=== PATIENT | female | born 1935 ===

== ENCOUNTER → 2017-02-22 | Outpatient (CLI) | payer OTHER, SELFPAY ==
[~2017-02-22] MED LIST: AZIT250 PO; Aspirin EC81 MG PO; BUME2 PO; CODACE30 PO; Celexa10 MG PO; Diovan320 MG PO; FURO40 PO; GABA100 PO; GABA300 PO; GLIM4 PO; HYDMOR2 PO; HYDR10 PO; LISI5 PO; LOVA40 PO; MELA3 PO; METO100ER PO; METO25ER PO; MEVACOR; Micro-K10 MEQ PO; OXYC5 PO; Prednisone20 MG PO; SITA100T2 PO; Tessalon200 MG PO; [UNRECOGNIZED DRUG - REMARK]; [UNRECOGNIZED DRUG - REMARK]; [UNRECOGNIZED DRUG - REMARK]
[2017-02-22 16:09] LABS: CHOL/HDL RATIO 2.8; Cholesterol 173 mg/dL (50-200); HDL Cholesterol 62 mg/dL (>39); LDL/HDL RATIO 1.4; Low Density Lipoprotein Chol 88 mg/dL (0-110); Triglycerides 114 mg/dL (30-160); Very Low Density Lipoprot Chol 22 mg/dL (6-32)
== END | disposition home or self-care (01) ==
LOC: LAB 14:57
PROVIDERS: Hospitalist
DX: E78.5 Hyperlipidemia, unspecified (principal)
CPT/HCPCS: 80061

== ENCOUNTER → 2017-05-21 | Outpatient (CLI) | payer OTHER, SELFPAY ==
[~2017-05-21] MED LIST changes: -AZIT250 PO; -Aspirin EC81 MG PO; -BUME2 PO; -GABA300 PO; -LISI5 PO; -MELA3 PO; -METO25ER PO; -Micro-K10 MEQ PO; -Tessalon200 MG PO
[2017-05-21 17:46] LABS: Bun/Creatinine Ratio 27.7 (12.0-20.0); Calcium, Blood 9.2 mg/dL (8.5-10.1); Creatinine, Blood 1.19 mg/dL (0.40-1.00); Potassium, Blood 3.8 mmol/L (3.5-5.5)
== END ==
LOC: LAB SHORT 15:46 → LAB 15:46
PROVIDERS: Hospitalist
DX: N18.3 Chronic kidney disease, stage 3 (moderate) (principal)
CPT/HCPCS: 80048

== ENCOUNTER 2017-10-10 14:40 | Inpatient (IN) | payer OTHER ==
[~2017-10-10] VITALS: Ht 157.5 cm; Wt 83.9 kg
[2017-10-10 15:17] LABS: BASOPHILS ABSOLUTE AUTO 0.05 K/mm3 (0.00-0.23); BASOPHILS PERCENT AUTO 1 % (0-2); EOSINOPHILS ABSOLUTE AUTO 0.07 K/mm3 (0.00-0.68); EOSINOPHILS PERCENT AUTO 1 % (0-6); Hematocrit 52.2 % (33.0-51.0); Hemoglobin 16.4 g/dL (11.5-16.0); IMMATURE GRAN ABSOLUTE AUTO 0.02 K/mm3 (0.00-0.10); IMMATURE GRAN PERCENT AUTO 0 % (0-1); LYMPHOCYTES ABSOLUTE AUTO 1.02 K/mm3 (0.84-5.20); LYMPHOCYTES PERCENT AUTO 11 % (21-46); MONOCYTES ABSOLUTE AUTO 0.63 K/mm3 (0.16-1.47); MONOCYTES PERCENT AUTO 7 % (4-13); Mean Corpuscular HGB 31.5 pg (26.0-34.0); Mean Corpuscular HGB Conc 31.4 g/dL (31.5-36.5); Mean Corpuscular Volume 100 fL (80-100); Mean Platelet Volume 9.3 fL (9.1-12.4); NEUTROPHILS ABSOLUTE AUTO 7.42 K/mm3 (1.96-9.15); NEUTROPHILS PERCENT AUTO 81 % (41-73); NRBC ABSOLUTE 0.03 K/mm3 (0.00-0.02); NRBC Auto 0.3 /100 WBC (0.0-0.2); Platelet Count 211 K/mm3 (150-400); RDW Coefficient Variation 14.5 % (11.7-14.2); RDW Standard Deviation 52.3 fL (35.1-46.3); White Blood Cell Count 9.21 K/mm3 (4.00-11.30)
[2017-10-10] MEDS ORDERED: GABA300 PO (15:41)
[2017-10-10] MEDS ORDERED: HYDR10 PO (15:41)
[2017-10-10] MEDS ORDERED: BUME2 PO (15:41)
[2017-10-10] MEDS ORDERED: Aspirin EC81 MG PO (15:42)
[2017-10-10] MEDS ORDERED: MELA3 PO (15:42)
[2017-10-10 16:00] LABS: Albumin, Blood 3.3 g/dL (3.4-5.0); Albumin/Globulin Ratio 0.9 (0.8-1.8); Bun/Creatinine Ratio 18.1 (12.0-20.0); Calcium, Blood 8.6 mg/dL (8.5-10.1); Creatinine, Blood 1.49 mg/dL (0.40-1.00); Globulin, Blood 3.8 g/dL (2.2-4.0); Potassium, Blood 4.1 mmol/L (3.5-5.5); Total Protein, Blood 7.1 g/dL (6.4-8.2); Troponin I 0.11 ng/mL (0.000-0.040)
[2017-10-10 16:00] LABS: Base Excess Venous 14.1 mmol/L; Bicarbonate Venous 34.1 mmol/L (24.0-30.0); PO2 Venous 46.7 mmHg (38-42); pH Blood Venous 7.39 (7.34-7.37)
[2017-10-11 05:30] LABS: Albumin, Blood 2.9 g/dL (3.4-5.0); Anion Gap 5 mmol/L (6-16); Blood Urea Nitrogen 27 mg/dL (8-24); Bun/Creatinine Ratio 20.3 (12.0-20.0); CO2, Blood 34 mmol/L (21-32); Chloride, Blood 102 mmol/L (98-108); Creatinine, Blood 1.33 mg/dL (0.40-1.00); Glomerular Filtration Rate 40 (60-); Glucose, Blood 186 mg/dL (70-99); Phosphorus, Blood 3.9 mg/dL (2.5-4.9); Potassium, Blood 4.3 mmol/L (3.5-5.5); Sodium, Blood 141 mmol/L (136-145); Troponin I 0.117 ng/mL (0.000-0.040)
[2017-10-12 05:10] LABS: Bun/Creatinine Ratio 22.8 (12.0-20.0); Calcium, Blood 8.5 mg/dL (8.5-10.1); Creatinine, Blood 1.45 mg/dL (0.40-1.00); Potassium, Blood 3.8 mmol/L (3.5-5.5)
[2017-10-12] MEDS ORDERED: AZIT250 PO (13:14)
[2017-10-12] MEDS ORDERED: FURO40 PO (13:19)
[2017-10-12] MEDS ORDERED: Tessalon200 MG PO (13:19)
[2017-10-12] MEDS ORDERED: LISI5 PO (13:20)
[2017-10-12] MEDS ORDERED: METO25ER PO (13:21)
[2017-10-12] MEDS ORDERED: Micro-K10 MEQ PO (13:23)
== END 2017-10-12 16:03 | disposition home or self-care (01) | DRG 280 ==
LOC: ER 14:40 → PCU 16:33
PROVIDERS: Emergency Medicine; Family Medicine; Hospitalist
DX: I13.0 Hypertensive heart and chronic kidney disease with heart failure and stage 1 through stage 4 chronic kidney disease, or unspecified chronic kidney disease (principal); I50.33 Acute on chronic diastolic (congestive) heart failure; I21.4 Non-ST elevation (NSTEMI) myocardial infarction; J96.01 Acute respiratory failure with hypoxia; J18.9 Pneumonia, unspecified organism; Z86.73 Personal history of transient ischemic attack (TIA), and cerebral infarction without residual deficits; E66.9 Obesity, unspecified; Z68.31 Body mass index [BMI] 31.0-31.9, adult; N18.3 Chronic kidney disease, stage 3 (moderate); E11.22 Type 2 diabetes mellitus with diabetic chronic kidney disease; E78.5 Hyperlipidemia, unspecified; G89.4 Chronic pain syndrome; Z79.4 Long term (current) use of insulin; R29.810 Facial weakness; M48.061 Spinal stenosis, lumbar region without neurogenic claudication; E11.51 Type 2 diabetes mellitus with diabetic peripheral angiopathy without gangrene
CPT/HCPCS: 36415; 51702; 71045; 80048; 80053; 80069; 82803; 82947; 83880; 84484; 85025; 85379; 93005; 93010; 94640; 94660; 94761; 94762; 96374; 96375; 99285-25; J0456; J0696; J1650; J1940; J2930; J7050

== ENCOUNTER → 2017-10-26 | Outpatient (CLI) | payer OTHER ==
[~2017-10-26] MED LIST changes: +AZIT250 PO; +Aspirin EC81 MG PO; +BUME2 PO; +GABA300 PO; +LISI5 PO; +MELA3 PO; +METO25ER PO; +Micro-K10 MEQ PO; +Tessalon200 MG PO
[2017-10-26 18:01] LABS: Bun/Creatinine Ratio 21.3 (12.0-20.0); Calcium, Blood 9.3 mg/dL (8.5-10.1); Creatinine, Blood 1.22 mg/dL (0.40-1.00); Potassium, Blood 4.4 mmol/L (3.5-5.5)
== END | disposition home or self-care (01) ==
LOC: LAB 17:25 → LAB SHORT 17:25
PROVIDERS: Hospitalist
DX: N18.3 Chronic kidney disease, stage 3 (moderate) (principal)
CPT/HCPCS: 80048